=== PATIENT | female | born 1960 | race Caucasian/White ===

== ENCOUNTER 2021-03-25 20:30 | Inpatient (IN) | payer OTHER ==
[~2021-03-25] VITALS: Ht 165.1 cm; Wt 96.0 kg
[2021-03-25] MEDS ORDERED: DEXAMETHASONE 4 MG/ML, 1ML IVPush ONE (21:00)
[2021-03-25] MEDS ORDERED: SODIUM CHLORIDE FLUSH 10ML SYR IVF ONE (21:00)
[2021-03-25] MEDS ORDERED: SODIUM CHLORIDE 0.9% 1,000ML IVBOLUS ONE (21:00)
[2021-03-25] MEDS ORDERED: DEXAMETHASONE 4 MG/ML, 1ML ONE (21:08)
[2021-03-25] MEDS ORDERED: IBUPROFEN 800 MG TABLET ONE (21:08)
[2021-03-25 21:11] LABS: BASOPHILS % (AUTO) 1 % (0-1); EOSINOPHILS % (AUTO) 0 % (1-7); LYMPHOCYTES % (AUTO) 15 % (22-44); MEAN CORPUSCULAR HEMOGLOBIN 28.9 pg (27.0-34.8); MEAN CORPUSCULAR HGB CONC 33.3 g/dL (32.4-35.8); MEAN PLATELET VOLUME 8.1 fL (7.4-10.4); MONOCYTES % (AUTO) 7 % (2-9); NEUTROPHILS % (AUTO) 77 % (42-75); PLATELET COUNT 127 x10^3/uL (130-400); RED BLOOD COUNT 4.64 x10^6/uL (3.82-5.3); RED CELL DISTRIBUTION WIDTH 14.7 % (9.6-15.2)
[2021-03-25] MEDS ORDERED: ONDANSETRON 2MG/ML, 2ML ONE (21:14)
[2021-03-25 21:20] LABS: ALANINE AMINOTRANSFERASE 50 U/L (12-78); ALBUMIN 3.1 g/dL (3.4-5.0); ANION GAP 3 mmol/L (5-15); CALCIUM 8.8 mg/dL (8.5-10.1); CHLORIDE 107 mmol/L (98-107); CREATININE 0.62 mg/dL (0.55-1.02)
[2021-03-25 21:22] LABS: ALKALINE PHOSPHATASE 47 U/L (45-117); BILIRUBIN,TOTAL 0.6 mg/dL (0.2-1.0); TOTAL PROTEIN 7.6 g/dL (6.4-8.2)
[2021-03-25] MEDS ORDERED: ONDANSETRON 2MG/ML, 2ML IVPush ONE (21:30)
[2021-03-25] MEDS ORDERED: CEFTRIAXONE 1,000 MG in DEXTROSE 5% 50 ML IVPB ONE (21:30)
[2021-03-25] MEDS ORDERED: IBUPROFEN 800 MG TABLET PO ONE (21:30)
[2021-03-25] MEDS ORDERED: AZITHROMYCIN 500 MG in SODIUM CHLORIDE 0.9% 250 ML IV ONE (21:30)
--- NOTE | 2021-03-25 21:40 | NUR ---
[employer] RN: MEDICATION ORDERED FROM PHARMACY, AWAITING MEDICATION PRIOR TO ADMINISTRATION.
[2021-03-25] MEDS: MELATONIN 5 MG TABLET PO SCH (23:00)
[2021-03-25] MEDS ORDERED: PHARMACY MAY ADJ FOR RENAL FX MC PRN (23:00)
[2021-03-25] MEDS ORDERED: POLYETHYLENE GLYCOL 17 GM PACKET PO PRN (23:00)
[2021-03-25] MEDS ORDERED: ONDANSETRON 2MG/ML, 2ML IVPush PRN (23:00)
[2021-03-25] MEDS ORDERED: ENOXAPARIN 40 MG/0.4 ML SQ SCH (23:00)
[2021-03-25] MEDS ORDERED: LABETALOL 5MG/ML, 20ML IVPush PRN (23:00)
--- NOTE | 2021-03-26 03:15 | NUR ---
REPORT TO CEDRICK HERNANDEZ
[2021-03-26] MEDS: ASCORBIC ACID 500 MG TABLET PO SCH ×3 (03:20→21:04)
[2021-03-26 06:32] LABS: BASOPHILS % (AUTO) 0 % (0-1); EOSINOPHILS % (AUTO) 0 % (1-7); LYMPHOCYTES % (AUTO) 16 % (22-44); MEAN PLATELET VOLUME 8.5 fL (7.4-10.4); MONOCYTES % (AUTO) 3 % (2-9); NEUTROPHILS % (AUTO) 81 % (42-75); PLATELET COUNT 121 x10^3/uL (130-400); RED BLOOD COUNT 4.55 x10^6/uL (3.82-5.3); RED CELL DISTRIBUTION WIDTH 14.9 % (9.6-15.2)
[2021-03-26 06:33] LABS: ANION GAP 5 mmol/L (5-15); CALCIUM 8.8 mg/dL (8.5-10.1); CHLORIDE 108 mmol/L (98-107); CREATININE 0.68 mg/dL (0.55-1.02)
--- NOTE | 2021-03-26 06:39 | NUR ---
PT SLEEPING IN BED, NO ACUTE DISTRESS, REMAINS ON CR MONITOR.
--- NOTE | 2021-03-26 06:49 | NUR ---
REPORT GIVEN TO TAMARA HERNANDEZ.
--- NOTE | 2021-03-26 07:20 | NUR ---
PT ROOM ON DROPLET ISO PRECAUTIONS
--- NOTE | 2021-03-26 07:21 | NUR ---
PT RESTING CALMLY IN BED AT THIS TIME. WILL CONTINUE TO MONITOR.
[2021-03-26] MEDS ORDERED: ZINC SULFATE 220 MG CAPSULE ONE (07:23)
[2021-03-26] MEDS ORDERED: ENOXAPARIN 40 MG/0.4 ML ONE (07:23)
[2021-03-26] MEDS ORDERED: ASCORBIC ACID 500 MG TABLET ONE (07:23)
[2021-03-26] MEDS ORDERED: FAMOTIDINE 20 MG TABLET ONE (07:23)
[2021-03-26] MEDS ORDERED: DEXAMETHASONE 4 MG/ML, 1ML ONE (07:23)
[2021-03-26] MEDS ORDERED: FUROSEMIDE 20 MG/2 ML ONE (08:03)
[2021-03-26] MEDS ORDERED: REMDESIVIR 200 MG in SODIUM CHLORIDE 0.9% 100 ML IVPB ONE (08:30)
[2021-03-26] MEDS: DEXAMETHASONE 4 MG/ML, 1ML IVPush SCH (08:40)
[2021-03-26] MEDS: ZINC SULFATE 220 MG CAPSULE PO SCH (08:41)
[2021-03-26] MEDS: FUROSEMIDE 20 MG/2 ML IV SCH ×2 (08:41→21:05)
--- NOTE | 2021-03-26 08:42 | NUR ---
PT MEDICATED PER EMAR. PT GIVEN BEDSIDE COMMODE TO VOID. PT REMOVED BP CUFF. CUFF PLACED BACK ON PT FOR VITALS. WILL CONTINUE TO MONITOR
[2021-03-26] MEDS ORDERED: FAMOTIDINE 20 MG TABLET PO SCH (09:00)
--- NOTE | 2021-03-26 10:21 | NUR ---
IV PUMP CONTINUING TO BEEP. PT ARM REPOSITIONED. PT C/O DISCOMFORT IN [facility]. PT REPOSITIONED FOR COMFORT WELL. WILL CONTINUE TO MONITOR. PT IS LAYING DOWN IN [facility], NO OTHER STATED NEEDS AT THIS TIME.
[2021-03-26 13:39] LABS: C-REACTIVE PROTEIN, QUANT 3.1 mg/dL (0.02-0.49)
--- NOTE | 2021-03-26 13:47 | NUR ---
TASK RN NOTE: PT LAYING ON SIDE IN BED, BP MEASUREMENT TAKEN. HOB MOVED TO LEVEL OF COMFORT FOR PT. PILLOW AND BLANKET PROVIDED. EXTRA TOILET PAPER PREPARED AT BEDSIDE FOR PT NEAR BEDSIDE COMMODE. NAD NOTED IN PT AT THIS TIME. PT WATCHING TELEVISION.
--- NOTE | 2021-03-26 14:56 | NUR ---
REPORT CALLED TO NICOLAS HERNANDEZ
--- NOTE | 2021-03-26 15:42 | NUR ---
RAFITA BRANDON - COUSIN,
--- NOTE | 2021-03-26 16:42 | NUR ---
PT UP TO BEDSIDE COMMODE. NO STATED NEEDS AT THIS TIME.
[2021-03-26 18:39] VITALS: BP 139/81
[2021-03-26] MEDS: BENZONATATE 100 MG CAPSULE PO SCH ×2 (21:00→21:04)
[2021-03-26] MEDS: MELATONIN 5 MG TABLET PO SCH (21:05)
[2021-03-26] MEDS: CHOLECALCIFEROL 5,000u TAB PO SCH (21:05)
[2021-03-26] MEDS: ENOXAPARIN 40 MG/0.4 ML SQ SCH (21:05)
[2021-03-27 02:00] VITALS: BP 132/76
[2021-03-27 04:59] LABS: ALBUMIN 2.9 g/dL (3.4-5.0); ANION GAP 6 mmol/L (5-15); CALCIUM 8.5 mg/dL (8.5-10.1); CHLORIDE 106 mmol/L (98-107)
[2021-03-27 05:02] LABS: ALANINE AMINOTRANSFERASE 51 U/L (12-78); ALKALINE PHOSPHATASE 48 U/L (45-117); BILIRUBIN,TOTAL 0.5 mg/dL (0.2-1.0); CREATININE 0.73 mg/dL (0.55-1.02); TOTAL PROTEIN 7.5 g/dL (6.4-8.2)
[2021-03-27] MEDS: REMDESIVIR 100 MG in SODIUM CHLORIDE 0.9% 100 ML IVPB SCH (08:27)
[2021-03-27] MEDS: ENOXAPARIN 40 MG/0.4 ML SQ SCH ×2 (08:27→22:02)
[2021-03-27] MEDS: DEXAMETHASONE 4 MG/ML, 1ML IVPush SCH (08:27)
[2021-03-27] MEDS: FUROSEMIDE 20 MG/2 ML IV SCH ×2 (08:28→16:12)
[2021-03-27] MEDS: BENZONATATE 100 MG CAPSULE PO SCH ×3 (08:28→22:01)
[2021-03-27] MEDS: ZINC SULFATE 220 MG CAPSULE PO SCH (08:28)
[2021-03-27] MEDS: CHOLECALCIFEROL 5,000u TAB PO SCH (08:28)
[2021-03-27] MEDS: ASCORBIC ACID 500 MG TABLET PO SCH ×2 (08:28→22:01)
[2021-03-27 08:34] VITALS: BP 121/74
[2021-03-27] MEDS ORDERED: OMNIPAQUE 350 MG/ML, 100ML BOTTLE ONE (09:55)
[2021-03-27 13:39] VITALS: BP 132/78
[2021-03-27 21:58] VITALS: BP 131/78
[2021-03-27] MEDS: MELATONIN 5 MG TABLET PO SCH (22:01)
[2021-03-27] MEDS: INSULIN LISPRO 100 UNITS/ML, PEN SQ-INSULIN SCH (22:01)
[2021-03-28 01:51] VITALS: BP 130/77
[2021-03-28] MEDS: ACETAMINOPHEN 500 MG TABLET PO PRN ×2 (02:42→23:15)
[2021-03-28] MEDS: DIPHENHYDRAMINE 25 MG CAPSULE PO PRN ×2 (02:42→23:15)
[2021-03-28 06:41] LABS: BASOPHILS % (AUTO) 0 % (0-1); EOSINOPHILS % (AUTO) 0 % (1-7); LYMPHOCYTES % (AUTO) 9 % (22-44); MEAN CORPUSCULAR HEMOGLOBIN 29.4 pg (27.0-34.8); MEAN CORPUSCULAR HGB CONC 33.7 g/dL (32.4-35.8); MEAN PLATELET VOLUME 8.5 fL (7.4-10.4); MONOCYTES % (AUTO) 9 % (2-9); NEUTROPHILS % (AUTO) 82 % (42-75); PLATELET COUNT 173 x10^3/uL (130-400); RED BLOOD COUNT 4.49 x10^6/uL (3.82-5.3); RED CELL DISTRIBUTION WIDTH 14.6 % (9.6-15.2)
[2021-03-28 06:50] LABS: ALANINE AMINOTRANSFERASE 53 U/L (12-78); ALBUMIN 3.2 g/dL (3.4-5.0); ANION GAP 8 mmol/L (5-15); CALCIUM 8.9 mg/dL (8.5-10.1); CHLORIDE 107 mmol/L (98-107); CREATININE 0.58 mg/dL (0.55-1.02)
[2021-03-28 06:52] LABS: ALKALINE PHOSPHATASE 50 U/L (45-117); BILIRUBIN,TOTAL 0.5 mg/dL (0.2-1.0); TOTAL PROTEIN 7.5 g/dL (6.4-8.2)
[2021-03-28] MEDS: INSULIN LISPRO 100 UNITS/ML, PEN SQ-INSULIN SCH ×4 (06:54→21:00)
[2021-03-28] MEDS: REMDESIVIR 100 MG in SODIUM CHLORIDE 0.9% 100 ML IVPB SCH (08:24)
[2021-03-28] MEDS: ASCORBIC ACID 500 MG TABLET PO SCH ×2 (08:24→21:00)
[2021-03-28] MEDS: CHOLECALCIFEROL 5,000u TAB PO SCH (08:25)
[2021-03-28] MEDS: ZINC SULFATE 220 MG CAPSULE PO SCH (08:25)
[2021-03-28] MEDS: FUROSEMIDE 20 MG/2 ML IV SCH ×2 (08:25→15:59)
[2021-03-28] MEDS: ENOXAPARIN 40 MG/0.4 ML SQ SCH ×2 (08:25→21:00)
[2021-03-28] MEDS: BENZONATATE 100 MG CAPSULE PO SCH ×3 (08:25→21:00)
[2021-03-28] MEDS: DEXAMETHASONE 4 MG/ML, 1ML IVPush SCH (08:26)
[2021-03-28 08:31] VITALS: BP 137/84
[2021-03-28 13:31] VITALS: BP 119/74
[2021-03-28 18:48] VITALS: BP 119/75
[2021-03-28] MEDS: MELATONIN 5 MG TABLET PO SCH (21:00)
[2021-03-29 00:55] VITALS: BP 132/80
[2021-03-29 06:42] LABS: ALBUMIN 3.1 g/dL (3.4-5.0); ANION GAP 7 mmol/L (5-15); CHLORIDE 104 mmol/L (98-107)
[2021-03-29 06:45] LABS: ALANINE AMINOTRANSFERASE 63 U/L (12-78); ALKALINE PHOSPHATASE 60 U/L (45-117); BILIRUBIN,TOTAL 0.6 mg/dL (0.2-1.0); CREATININE 0.62 mg/dL (0.55-1.02)
[2021-03-29] MEDS: INSULIN LISPRO 100 UNITS/ML, PEN SQ-INSULIN SCH ×4 (07:00→21:00)
[2021-03-29] MEDS: FUROSEMIDE 20 MG/2 ML IV SCH (07:49)
[2021-03-29] MEDS: ENOXAPARIN 40 MG/0.4 ML SQ SCH ×2 (07:49→21:20)
[2021-03-29] MEDS: ZINC SULFATE 220 MG CAPSULE PO SCH (07:49)
[2021-03-29] MEDS: DEXAMETHASONE 4 MG/ML, 1ML IVPush SCH (07:50)
[2021-03-29] MEDS: ASCORBIC ACID 500 MG TABLET PO SCH ×2 (07:50→21:19)
[2021-03-29] MEDS: BENZONATATE 100 MG CAPSULE PO SCH ×3 (07:50→21:19)
[2021-03-29] MEDS: CHOLECALCIFEROL 5,000u TAB PO SCH (07:50)
[2021-03-29 07:56] VITALS: BP 129/85
[2021-03-29] MEDS: REMDESIVIR 100 MG in SODIUM CHLORIDE 0.9% 100 ML IVPB SCH (08:34)
[2021-03-29] MEDS ORDERED: SODIUM CHLORIDE NASAL SPRAY 45ML BOTTLE NAS PRN (09:00)
[2021-03-29 12:12] VITALS: BP 119/71
[2021-03-29 20:06] VITALS: BP 132/80
[2021-03-29] MEDS: MELATONIN 5 MG TABLET PO SCH (21:00)
[2021-03-29] MEDS: DIPHENHYDRAMINE 25 MG CAPSULE PO PRN (21:18)
[2021-03-29] MEDS: ACETAMINOPHEN 500 MG TABLET PO PRN (21:18)
[2021-03-30 00:38] VITALS: BP 122/76
[2021-03-30] MEDS: BENZONATATE 100 MG CAPSULE PO SCH ×3 (06:00→22:21)
[2021-03-30 06:14] LABS: BASOPHILS % (AUTO) 0 % (0-1); EOSINOPHILS % (AUTO) 0 % (1-7); LYMPHOCYTES % (AUTO) 11 % (22-44); MEAN CORPUSCULAR HEMOGLOBIN 29.7 pg (27.0-34.8); MEAN CORPUSCULAR HGB CONC 34.3 g/dL (32.4-35.8); MEAN PLATELET VOLUME 8.3 fL (7.4-10.4); MONOCYTES % (AUTO) 5 % (2-9); NEUTROPHILS % (AUTO) 83 % (42-75); PLATELET COUNT 258 x10^3/uL (130-400); RED CELL DISTRIBUTION WIDTH 14.5 % (9.6-15.2)
[2021-03-30 06:26] LABS: ALBUMIN 3.1 g/dL (3.4-5.0); ANION GAP 7 mmol/L (5-15); CALCIUM 8.9 mg/dL (8.5-10.1); CHLORIDE 103 mmol/L (98-107)
[2021-03-30 06:32] LABS: ALANINE AMINOTRANSFERASE 74 U/L (12-78); ALKALINE PHOSPHATASE 57 U/L (45-117); BILIRUBIN,TOTAL 0.7 mg/dL (0.2-1.0); C-REACTIVE PROTEIN, QUANT 0.23 mg/dL (0.02-0.49); CREATININE 0.68 mg/dL (0.55-1.02); TOTAL PROTEIN 7.8 g/dL (6.4-8.2)
[2021-03-30 06:59] LABS: HCT (SEDRATE) 43.3 % (34.6-47.8)
[2021-03-30] MEDS: INSULIN LISPRO 100 UNITS/ML, PEN SQ-INSULIN SCH ×4 (07:00→21:00)
[2021-03-30 07:46] VITALS: BP 126/76
[2021-03-30] MEDS: REMDESIVIR 100 MG in SODIUM CHLORIDE 0.9% 100 ML IVPB SCH (08:13)
[2021-03-30] MEDS: DEXAMETHASONE 4 MG/ML, 1ML IVPush SCH (08:13)
[2021-03-30] MEDS: ASCORBIC ACID 500 MG TABLET PO SCH ×2 (08:13→22:21)
[2021-03-30] MEDS: FUROSEMIDE 20 MG/2 ML IV SCH (08:14)
[2021-03-30] MEDS: ZINC SULFATE 220 MG CAPSULE PO SCH (08:14)
[2021-03-30] MEDS: CHOLECALCIFEROL 5,000u TAB PO SCH (08:14)
[2021-03-30] MEDS: ENOXAPARIN 40 MG/0.4 ML SQ SCH ×2 (08:14→21:00)
[2021-03-30 10:06] LABS: ALBUMIN 3.5 g/dL (3.4-5.0); ANION GAP 10 mmol/L (5-15); CALCIUM 9.3 mg/dL (8.5-10.1); CHLORIDE 103 mmol/L (98-107)
[2021-03-30 10:10] LABS: ALANINE AMINOTRANSFERASE 74 U/L (12-78); ALKALINE PHOSPHATASE 59 U/L (45-117); BILIRUBIN,TOTAL 0.7 mg/dL (0.2-1.0); CREATININE 0.76 mg/dL (0.55-1.02); TOTAL PROTEIN 8.3 g/dL (6.4-8.2)
[2021-03-30] MEDS ORDERED: PRED10TA PO ×2 (10:46→10:48)
[2021-03-30 12:29] VITALS: BP 124/83
[2021-03-30] MEDS ORDERED: BENZ100C PO (13:57)
[2021-03-30 19:40] VITALS: BP 134/82
[2021-03-30] MEDS: ACETAMINOPHEN 500 MG TABLET PO PRN (22:21)
[2021-03-30] MEDS: MELATONIN 5 MG TABLET PO SCH (22:21)
[2021-03-30] MEDS: DIPHENHYDRAMINE 25 MG CAPSULE PO PRN (22:21)
[2021-03-31 00:01] VITALS: BP 124/81
[2021-03-31 07:52] VITALS: BP 114/70
[2021-03-31] MEDS: INSULIN LISPRO 100 UNITS/ML, PEN SQ-INSULIN SCH ×3 (08:01→16:00)
[2021-03-31] MEDS: ENOXAPARIN 40 MG/0.4 ML SQ SCH (08:02)
[2021-03-31] MEDS: ASCORBIC ACID 500 MG TABLET PO SCH (08:02)
[2021-03-31] MEDS: CHOLECALCIFEROL 5,000u TAB PO SCH (08:03)
[2021-03-31] MEDS: BENZONATATE 100 MG CAPSULE PO SCH ×2 (08:03→16:00)
[2021-03-31] MEDS: ZINC SULFATE 220 MG CAPSULE PO SCH (08:03)
[2021-03-31] MEDS: FUROSEMIDE 20 MG/2 ML IV SCH (08:03)
[2021-03-31] MEDS: DEXAMETHASONE 4 MG/ML, 1ML IVPush SCH (08:04)
== END 2021-03-31 18:23 | disposition home or self-care (01) | DRG 177 ==
LOC: ED 21:00 → EDIP 22:56 → 4EST 03-26 14:53 → EDIP 03-26 15:32 → 4WST 03-26 17:22 → 3N 03-29 10:37
PROVIDERS: ADMIT Internal Medicine; ATTEND Family Medicine
PROC: XW033E5 Introduction of Remdesivir Anti-infective into Peripheral Vein, Percutaneous Approach, New Technology Group 5 (ICD-10-PCS; principal; 2021-03-26)
DX: U07.1 COVID-19 (principal); J96.01 Acute respiratory failure with hypoxia; J12.82 Pneumonia due to coronavirus disease 2019; D70.9 Neutropenia, unspecified; R73.03 Prediabetes; D69.6 Thrombocytopenia, unspecified; D72.819 Decreased white blood cell count, unspecified; K90.0 Celiac disease; E83.51 Hypocalcemia; E21.3 Hyperparathyroidism, unspecified; E66.01 Morbid (severe) obesity due to excess calories; Z88.2 Allergy status to sulfonamides; Z68.35 Body mass index [BMI] 35.0-35.9, adult
CPT/HCPCS: 36415; 71045; 71275; 80048; 80053; 82306; 82728; 82962; 83036; 83615; 84145; 85025; 85379; 85651; 86140; 87040; 93005; 96365; 96366; 96368; 96375; G0378; J0456; J0696; J1100; J1650; J2405; Q9967; J1815; J1940; J7030; J7050; Q0163